=== PATIENT | male | born 1990 | race Caucasian/White ===

== ENCOUNTER → 2021-04-30 | Outpatient (CLI) | payer MEDICARE, OTHER ==
[2021-04-30 11:14] LABS: BASO # 0.1 10^3/uL (0.0-0.2); BASO % 0.6 % (0.0-1.0); EOS # 0.4 10^3/uL (0.0-0.5); EOS % 4.3 % (0.0-3.0); HEMATOCRIT 51.9 % (42.0-52.0); LYMPH # 2.8 10^3/uL (1.5-5.0); LYMPH % 27.1 % (24.0-44.0); MEAN CORPUSCULAR HEMOGLOBIN 29.8 pg (27.0-33.0); MEAN CORPUSCULAR HGB CONC 32.8 g/dl (32.0-36.5); MEAN CORPUSCULAR VOLUME 90.9 fl (80.0-96.0); MONO # 1.1 10^3/uL (0.0-0.8); MONO % 10.8 % (2.0-8.0); NEUTROPHILS # 5.7 10^3/uL (1.5-8.5); NEUTROPHILS % 56.1 % (36.0-66.0); PLATELET COUNT, AUTOMATED 289 10^3/uL (150-450); RED BLOOD COUNT 5.71 10^6/uL (4.30-6.10); WHITE BLOOD COUNT 10.2 10^3/uL (4.0-10.0)
[2021-04-30 11:43] LABS: FREE T4 1.26 NG/DL (0.76-1.46); THYROID STIMULATING HORMONE 1.26 uIU/ML (0.358-3.740)
[2021-04-30 11:44] LABS: ESTRADIOL 54.2 PG/ML (<39.8)
[2021-04-30 12:00] LABS: HEMOGLOBIN A1c 5.3 %
== END ==
LOC: M LAB 09:33
PROVIDERS: ATTEND Physician Assistant
DX: Z12.5 Encounter for screening for malignant neoplasm of prostate (principal); E29.1 Testicular hypofunction; R53.82 Chronic fatigue, unspecified; E74.39 Other disorders of intestinal carbohydrate absorption
CPT/HCPCS: 36415; 82670; 83036; 84402; 84403; 84439; 84443; 85025; G0103